=== PATIENT | female | born 1995 | race African-American/Black ===

== ENCOUNTER 2018-08-02 00:09 | Emergency (ER) | payer OTHER ==
[~2018-08-02] VITALS: Ht 172.7 cm; Wt 97.5 kg
[2018-08-02 00:20] VITALS: Ht 172.7 cm; Wt 97.5 kg
[2018-08-02 01:44] VITALS: BP 126/85
== END 2018-08-02 01:44 | disposition home or self-care (01) ==
LOC: ED 00:09
DX: K59.00 Constipation, unspecified (principal); G43.909 Migraine, unspecified, not intractable, without status migrainosus

== ENCOUNTER 2020-07-16 10:56 | Emergency (ER) | payer OTHER ==
[~2020-07-16] VITALS: Ht 172.7 cm; Wt 86.2 kg
[2020-07-16 11:03] VITALS: Ht 172.7 cm; Wt 86.2 kg
[2020-07-16 12:00] LABS: CALCIUM 9.9 mg/dL (8.5-10.1); CARBON DIOXIDE 25.9 mmol/L (21-32); CHLORIDE SERUM 104 mmol/L (98-107); CREATININE SERUM 0.9 mg/dL (0.6-1.0); GFR1 > 60 mL/min; GLUCOSE SERUM 93 mg/dL (74-106); POTASSIUM SERUM 3.8 mmol/L (3.5-5.1); SODIUM SERUM 140 mmol/L (136-145)
[2020-07-16 12:05] LABS: ALBUMIN 4.4 g/dL (3.4-5.0); ALKALINE PHOSPHATASE 67 U/L (46-116); ALT/SGPT 24 U/L (14-59); AST/SGOT 21 U/L (15-37); BILIRUBIN TOTAL 0.49 mg/dL (0.20-1.00)
[2020-07-16 12:07] LABS: TOTAL PROTEIN, SERUM 8.8 g/dL (6.4-8.2)
[2020-07-16] MEDS ORDERED: REGLAN10 M1 PO (13:57)
[2020-07-16 14:22] VITALS: BP 105/54
== END 2020-07-16 14:22 | disposition home or self-care (01) ==
LOC: ED 10:56
PROVIDERS: Emergency Medicine
DX: O21.0 Mild hyperemesis gravidarum (principal); Z3A.01 Less than 8 weeks gestation of pregnancy
CPT/HCPCS: J2765; J7030

== ENCOUNTER 2020-07-17 15:11 | Inpatient (IN) | payer OTHER ==
[~2020-07-17] VITALS: Ht 172.7 cm; Wt 88.9 kg
[~2020-07-17 15:11] MED LIST: REGLAN10 M1 PO
[2020-07-17 15:17] VITALS: Ht 172.7 cm; Wt 88.9 kg
[2020-07-17 16:41] LABS: BASOPHIL % 0.7 % (0.2-1.3); PLATELET COUNT 347 x10^3mcL (179-408); RED CELL DISTRIBUTION WIDTH 13.9 % (12.3-17.7)
[2020-07-17 16:49] LABS: CALCIUM 9.5 mg/dL (8.5-10.1); CARBON DIOXIDE 26.4 mmol/L (21-32); CHLORIDE SERUM 101 mmol/L (98-107); CREATININE SERUM 0.5 mg/dL (0.6-1.0); GFR1 > 60 mL/min; GLUCOSE SERUM 80 mg/dL (74-106); POTASSIUM SERUM 3.4 mmol/L (3.5-5.1); SODIUM SERUM 137 mmol/L (136-145)
[2020-07-17 16:53] LABS: ALBUMIN 4.1 g/dL (3.4-5.0); ALKALINE PHOSPHATASE 63 U/L (46-116); ALT/SGPT 25 U/L (14-59); AST/SGOT 16 U/L (15-37); BILIRUBIN TOTAL 0.4 mg/dL (0.20-1.00); LIPASE 60 IU/L (73-393)
[2020-07-17 16:56] LABS: TOTAL PROTEIN, SERUM 8.3 g/dL (6.4-8.2)
[2020-07-17 16:56] LABS: UA SPECIFIC GRAVITY >=1.030 (1.005-1.035); microscopic required? YES; urine erythrocyte NEGATIVE (NEGATIVE)
[2020-07-17 21:44] VITALS: BP 108/62
[2020-07-18 05:54] VITALS: BP 142/62
[2020-07-18 08:15] LABS: BASOPHIL % 0.9 % (0.2-1.3); PLATELET COUNT 301 x10^3mcL (179-408)
[2020-07-18 08:37] LABS: CALCIUM 8.7 mg/dL (8.5-10.1); CHLORIDE SERUM 105 mmol/L (98-107); CREATININE SERUM 0.8 mg/dL (0.6-1.0); GFR1 > 60 mL/min; GLUCOSE SERUM 71 mg/dL (74-106); POTASSIUM SERUM 3.3 mmol/L (3.5-5.1); SODIUM SERUM 139 mmol/L (136-145)
[2020-07-18 08:54] VITALS: BP 119/60
[2020-07-18 13:43] VITALS: BP 112/65
[2020-07-18 16:26] VITALS: BP 108/72
[2020-07-18 20:04] VITALS: BP 110/61
[2020-07-19 04:40] VITALS: BP 109/53
[2020-07-19 07:23] LABS: BASOPHIL % 0.8 % (0.2-1.3); PLATELET COUNT 294 x10^3mcL (179-408); RED CELL DISTRIBUTION WIDTH 14.3 % (12.3-17.7)
[2020-07-19 09:18] VITALS: BP 104/69
[2020-07-19 11:22] LABS: CALCIUM 9.2 mg/dL (8.5-10.1); CARBON DIOXIDE 19.4 mmol/L (21-32); CHLORIDE SERUM 105 mmol/L (98-107); CREATININE SERUM 0.7 mg/dL (0.6-1.0); GFR1 > 60 mL/min; GLUCOSE SERUM 71 mg/dL (74-106); POTASSIUM SERUM 3.6 mmol/L (3.5-5.1); SODIUM SERUM 138 mmol/L (136-145)
[2020-07-19 12:36] VITALS: BP 115/62
[2020-07-19 16:14] VITALS: BP 126/87
== END 2020-07-19 19:43 | disposition left against medical advice (07) | DRG 564 ==
LOC: ED 15:11 → MU 18:27
PROVIDERS: Emergency Medicine; ADMIT Hospitalist; ATTEND Hospitalist
DX: O03.9 Complete or unspecified spontaneous abortion without complication (principal); O21.0 Mild hyperemesis gravidarum; Z20.822 Contact with and (suspected) exposure to COVID-19
CPT/HCPCS: G0378; J1200; J2405; J2550; J2765; J3490; J7030